=== PATIENT | male | born 2000 | race Caucasian/White ===

== ENCOUNTER 2019-11-18 07:04 | Emergency (ER) | payer BC ==
[~2019-11-18] VITALS: Ht 180.3 cm; Wt 90.0 kg
[2019-11-18 07:12] VITALS: Ht 180.3 cm; Wt 90.0 kg
[2019-11-18 07:33] VITALS: BP 154/98
[2019-11-18] MEDS ORDERED: NAPROSYN500 MG PO (08:01)
== END 2019-11-18 08:08 | disposition home or self-care (01) ==
LOC: D.ER 07:04
DX: S16.1XXA Strain of muscle, fascia and tendon at neck level, initial encounter (principal); V89.0XXA Person injured in unspecified motor-vehicle accident, nontraffic, initial encounter; Y93.9 Activity, unspecified; Y92.9 Unspecified place or not applicable; S09.90XA Unspecified injury of head, initial encounter